=== PATIENT | male | born 1980 | race Caucasian/White ===

== ENCOUNTER 2017-08-29 15:17 | Emergency (ER) | payer SELFPAY ==
[~2017-08-29] VITALS: Ht 175.3 cm; Wt 72.7 kg
[2017-08-29] MEDS ORDERED: GABA-533 PO (15:30)
[2017-08-29] MEDS ORDERED: GABA-531 PO (15:32)
[2017-08-29 16:54] LABS: INFLUENZA TYPE A NEGATIVE FOR TYPE A (NEGATIVE); INFLUENZA TYPE B NEGATIVE FOR TYPE B (NEGATIVE)
[2017-08-29] MEDS ORDERED: SODIUM CHLORIDE 0.9% 1,000 ML IV ONE (17:45)
[2017-08-29] MEDS ORDERED: ONDANSETRON HCL 4 MG/2 ML VIAL IVP ONE (17:45)
[2017-08-29] MEDS ORDERED: KETOROLAC TROMETHAMINE 30 MG/ML VIAL IVP ONE (17:45)
[2017-08-29] MEDS ORDERED: DEXAMETHASONE SOD PHOS 4 MG/ML 5 ML VIAL IM ONE (19:00)
[2017-08-29 19:48] VITALS: BP 130/65
== END 2017-08-29 19:52 | disposition home or self-care (01) ==
LOC: EMS 15:18
DX: J11.1 Influenza due to unidentified influenza virus with other respiratory manifestations (principal); G62.9 Polyneuropathy, unspecified
CPT/HCPCS: 87804; 96361; 96372; 96374; 96375; 99284; J1100; J1885; J2405; J7030

== ENCOUNTER 2024-08-28 01:06 | Emergency (ER) | payer OTHER ==
[~2024-08-28] VITALS: Ht 175.3 cm; Wt 72.7 kg
[~2024-08-28 01:06] MED LIST: GABA-1181 PO
[2024-08-28 01:12] VITALS: BP 97/65; PULSE 99; RESP 20; TEMP 97.8; O2SAT 97
[2024-08-28] MEDS: CefTRIAXone SODIUM 1 GM/VIAL IM ONE (02:04)
[2024-08-28] MEDS: LIDOCAINE/PF 1% 2 ML VIAL IM ONE (02:05)
[2024-08-28 02:09] LABS: BASOPHILS % (AUTO) 0.8 % (0.0-2.0); EOSINOPHILS % (AUTO) 1.5 % (1.0-6.0); HEMATOCRIT 38.5 % (41-53); LYMPHOCYTES # (AUTO) 2.3 K/uL (1.0-4.8); LYMPHOCYTES % (AUTO) 26.6 % (22.0-44.0); MEAN CORPUSCULAR HGB CONC 33.7 G/dL (31.0-37.0); MEAN CORPUSCULAR VOLUME 83 fL (80-100); MONOCYTES # (AUTO) 0.7 K/uL (0.1-1.0); MONOCYTES % (AUTO) 8.4 % (2.0-9.0); NEUTROPHILS # (AUTO) 5.5 K/uL (1.8-7.7); NEUTROPHILS % (AUTO) 62.7 % (40.0-70.0); PLATELET COUNT (AUTO) 367 K/uL (150-450); RED BLOOD CELL COUNT(AUTO) 4.64 MIL/uL (4.50-5.90); RED CELL DISTRIBUTION WIDTH 13.7 % (11.5-14.5); WHITE BLOOD COUNT (AUTO) 8.8 K/uL (4.5-11.0)
[2024-08-28] MEDS: BACITRACIN 28 GM OINTMENT TP ONE (02:10)
[2024-08-28] MEDS: DOXYCYCLINE HYCLATE 100 MG TABLET PO ONE (02:10)
[2024-08-28 02:20] LABS: ANION GAP 8 mmol/L (8-16); CALCIUM, TOTAL 8.8 mg/dL (8.8-10.5); CARBON DIOXIDE 30 mmol/L (22-29); CHLORIDE 104 mmol/L (98-107); CREATININE 1.11 mg/dL (0.60-1.30); GLOMERULAR FILTR. RATE CALC > 60 mL/min (>60); GLUCOSE,RANDOM 154 mg/dL (70-110); POTASSIUM 3.9 mmol/L (3.5-5.1); SODIUM SERUM 142 mmol/L (136-145); UREA NITROGEN, BLOOD 15 mg/dL (7-18)
[2024-08-28 02:24] LABS: ALANINE AMINOTRANSFERASE 18 U/L (12-78); ALBUMIN 3.3 g/dL (3.4-5.0); ALKALINE PHOSPHATASE 98 U/L (46-116); ASPARTATE AMINOTRANSFERASE 21 U/L (15-37); BILIRUBIN,TOTAL 0.6 mg/dL (0.1-1.0); TOTAL PROTEIN, SERUM 6.8 g/dL (6.4-8.2)
[2024-08-28] MEDS ORDERED: DOXY-354 PO (03:35)
[2024-08-28] MEDS ORDERED: CEPH-558 PO (03:35)
[2024-08-29 06:07] LABS: HIV 1-2 SCREEN 4TH GEN W/RFLX Non Reactive (Non Reactive)
== END 2024-08-28 03:43 | disposition home or self-care (01) ==
LOC: EMS 01:06
DX: N48.22 Cellulitis of corpus cavernosum and penis (principal); Z79.899 Other long term (current) drug therapy
CPT/HCPCS: 80048; 80076; 85025; 86592; 87389; 87491; 87591; 99283